=== PATIENT | female | born 1965 | race Caucasian/White ===

== ENCOUNTER 2016-11-09 10:43 | Day surgery (SDC) | payer BC ==
[~2016-11-09 10:43] MED LIST: Lactated Ringers 1,000 ML IV SCH; Midazolam 1 MG/ML 2 ML SDV ONE; Propofol 200 MG/20 ML SDV ONE; fentaNYL 100 MCG/2 ML SDV ONE
--- NOTE | 2016-11-09 11:05 | PCM.PREANE ---
Preanesthetic Assessment - Anesthesia/Transfusion/Family Hx Anesthesia History: Prior Anesthesia Without Reaction Family History of Anesthesia Reaction: No Transfusion History: No Prior Transfusion(s) Intubation History: Unknown - Review of Systems General: No Symptoms Pulmonary: No Symptoms Cardiovascular: No Symptoms Gastrointestinal: No symptoms Neurological: No Symptoms Other: Reports: None - Physical Assessment Height: 1.52 m Weight: 81.193 kg ASA Class: 2 Mental Status: Alert & Oriented x3 Airway Class: Mallampati = 2 Dentition: Reports: Normal Dentition Thyro-Mental Finger Breadths: 2 Mouth Opening Finger Breadths: 3 ROM/Head Extension: Full Lungs: Clear to auscultation, Normal respiratory effort Cardiovascular: Regular Rate, Regular Rhythm - Allergies Allergies/Adverse Reactions: Allergies Allergy/AdvReac Type Severity Reaction Status Date / Time No Known Allergies Allergy Verified 11/06/16 12:53 - Blood Blood Available: No - Anesthesia Plan Pre-Op Medication Ordered: None - Acknowledgements Anesthesia Type Planned: MAC Pt an Appropriate Candidate for the Planned Anesthesia: Yes Alternatives and Risks of Anesthesia Discussed w Pt/Guardian: Yes Pt/Guardian Understands and Agrees with Anesthesia Plan: Yes PreAnesthesia Questionnaire HEENT History: Reports: Allergic Rhinitis Cardiovascular History: Reports: High Cholesterol, Hypertension Respiratory History: Reports: Other (See Below) Other Respiratory History: states "think i may have sleep apnea, but have not been tested yet" 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: Psychiatric History: Reports: Anxiety, Depression Endocrine/Metabolic History: Reports: Obesity/BMI 30+ - Past Surgical History Head Surgeries/Procedures: Reports: None GI Surgical History: Reports: Appendectomy - SUBSTANCE USE Smoking Status *Q: Current Every Day Smoker (<1 ppd) Tobacco Use Within Last Twelve Months: Cigarettes Recreational Drug Use History: No - HOME MEDS Home Medications: Home Meds Lisinopril/Hydrochlorothiazide [Lisinopril-Hctz 10-12.5 mg Tab] 1 tab PO DAILY 11/06/16 [History] Soy Isofl/Blk Coh/Gr Tea/Yerba [[employer] Caplet] 1 tab PO DAILY 11/06/16 [History] atorvaSTATin Calcium [Atorvastatin Calcium] 40 mg PO DAILY 11/06/16 [History] buPROPion [Wellbutrin SR] 100 mg PO BID 11/06/16 [History] - CURRENT (IN HOUSE) MEDS Current Meds: Current Medications Lactated Ringer's (Ringers, Lactated) 1,000 mls @ 125 mls/hr IV ASDIRECTED VAHID Discontinued Medications Fentanyl (Sublimaze) Confirm Administered Dose 100 mcg .ROUTE .STK-MED ONE Stop: 11/09/16 07:05 Midazolam HCl (Versed 1 Mg/Ml) Confirm Administered Dose 2 mg .ROUTE .STK-MED ONE Stop: 11/09/16 07:05 Propofol (Diprivan 20 Ml) Confirm Administered Dose 200 mg .ROUTE .STK-MED ONE Stop: 11/09/16 07:05
--- NOTE | 2016-11-09 12:44 | PCM.OPNOTE ---
- General Post-Op/Procedure Note Date of Surgery/Procedure: 11/09/16 Operative Procedure(s): colonoscopy Findings: see dict [id number] Pre Op Diagnosis: scrn colonoscopy Post-Op Diagnosis: diverticulosis Anesthesia Technique: Moderate sedation Primary Surgeon: Papito Wilkinson Complications: None Condition: Good
--- NOTE | 2016-11-09 12:57 | PCM.POSTAN ---
POST ANESTHESIA ASSESSMENT - MENTAL STATUS Mental Status: alert, oriented - RESPIRATORY Respiratory Status: respiratory rate WNL, airway patent, O2 saturation stable - CARDIOVASCULAR CV Status: pulse rate WNL, blood pressure stable - GASTROINTESTINAL GI Status: no symptoms - POST OP HYDRATION Hydration Status: adequate & stable - OBSERVATIONS Free Text/Narrative:: no anesthesia problems
[2016-11-09 13:54] VITALS: BP 98/57
--- NOTE | 2016-11-09 14:09 | PCM48HPAN ---
Post Anesthesia Note - EVALUATION WITHIN 48HRS OF ANESTHETIC Vital Signs in Normal Range: Yes Patient Participated in Evaluation: Yes Respiratory Function Stable: Yes Airway Patent: Yes Cardiovascular Function Stable: Yes Hydration Status Stable: Yes Pain Control Satisfactory: Yes Nausea and Vomiting Control Satisfactory: Yes Mental Status Recovered: Yes
--- NOTE | 2016-11-09 19:16 | OR ---
SURGEON: Papito Wilkinson MD DATE OF PROCEDURE: 11/09/2016 PREOPERATIVE DIAGNOSIS: Screening colonoscopy. POSTOPERATIVE DIAGNOSIS: Diverticulosis. PROCEDURE PERFORMED: Colonoscopy. COMPLICATIONS: None. FINDINGS: 1. The patient is easily sedated with MEDICAL LAB TECHNOLOGIST and Diprivan. The patient is soundly snoring. 2. Bowel prep was average with moderate amount of liquid stool. No semi- formed stool. 3. The patient's colon was rather straight forward. Cecum indicated by ileocecal fold, one-to-one indentation, appendiceal orifice, and light immittance is not observed. The mucosa was examined upon scope pulling out and with some irrigation, the patient has very extensive diverticulosis on the left colon and also extended all the way to almost like 15 to 16 cm. Scope was inserted very low and false lumen is big as the true lumen. No signs or symptoms of diverticulitis. No polyp, mass, growth, inflammation, stricture, ulceration, bleeding, AV malformation observed. The patient does have mild external hemorrhoid and has mild internal hemorrhoids. PROCEDURE IN DETAIL: The patient was taken to the endoscopy room. A time out was called, patient identified, and procedure identified. Diprivan was then administrated. Patient went from awake to sleep, hearing doctor talking or door closing is normal. Perineum inspection and digital examination were then performed. A well- lubricated colonoscope was gently inserted through the rectum, advanced past the rectosigmoid junction, the descending colon, splenic flexure, transverse colon, hepatic flexure, ascending colon, arrived to the cecum. Cecum was identified as dictated in the finding. Then the scope was carefully withdrawn while attention was paid to the mucosal surface for any abnormality. Air will be sucked out during the scope withdrawal. At the rectum, retroflexed to examine any rectal diseases, fistula or hemorrhoids. The patient tolerated procedure well. There were no intraoperative complications, and Dr. Wilkinson was present throughout the whole procedure. The patient would benefit from repeat colonoscopy in 10 years from today or if clinically indicated otherwise. BELINDA / RAYO /[id number]
== END 2016-11-09 13:18 | disposition home or self-care (01) ==
LOC: MW.SDS 10:43
PROVIDERS: ATTEND Surgery
DX: Z12.11 Encounter for screening for malignant neoplasm of colon (principal); K57.30 Diverticulosis of large intestine without perforation or abscess without bleeding; I10 Essential (primary) hypertension; E78.00 Pure hypercholesterolemia, unspecified; F17.210 Nicotine dependence, cigarettes, uncomplicated; Z79.899 Other long term (current) drug therapy; Z90.49 Acquired absence of other specified parts of digestive tract; Z98.890 Other specified postprocedural states; Z82.49 Family history of ischemic heart disease and other diseases of the circulatory system
CPT/HCPCS: 45378; J2250; J3010; J7120; J2704